=== PATIENT | male | born 1950 | race Caucasian/White ===

== ENCOUNTER 2016-07-02 14:31 | Emergency (ER) | payer MEDICARE ==
[~2016-07-02] VITALS: Ht 175.3 cm; Wt 106.0 kg
[~2016-07-02 14:31] MED LIST: AMLO5TAB96; DIOV320T; HYDR12.56; NAPR500; PROT40TA; SERT100
[2016-07-02 14:35] VITALS: PULSE 93; RESP 17; TEMP 99; O2SAT 92
[2016-07-02] MEDS ORDERED: PROT40TA PO (14:55)
[2016-07-02] MEDS ORDERED: OXYC30TA62 PO (14:55)
[2016-07-02] MEDS ORDERED: AMLO5TAB2 PO (14:55)
[2016-07-02] MEDS ORDERED: OXYC30TA PO (14:55)
[2016-07-02] MEDS ORDERED: SERT-129 PO (14:55)
[2016-07-02] MEDS ORDERED: PANT20TA2 PO (14:55)
[2016-07-02] MEDS ORDERED: DIOV320T3 PO (14:55)
[2016-07-02] MEDS ORDERED: OXYC1CAP PO (14:55)
[2016-07-02] MEDS ORDERED: RESP: ALBUTEROL 2.5 MG/IPRATROPIUM 0.5 MG NEB (SCH) INH ONE (15:00)
[2016-07-02] MEDS ORDERED: SODIUM CHLOR 0.9% 1000 ML INJ 1,000 ML IV ONE (15:00)
[2016-07-02 15:03] VITALS: BP 138/64
--- NOTE | 2016-07-02 15:06 | PD ---
HPI Chief Complaint: Respiratory Symptoms Time Seen by Provider: 14:46 Travel History International Travel<30 days: No Contact w/Intl Traveler<30days: No Traveled to known affect area: No History of Present Illness HPI Patient is a 65-year-old male with history of hypertension, anxiety, GERD who was brought to emergency room by his for evaluation of possible pneumonia. Patient reports that for the past 3 days, he has not been feeling well. Patient reports that he has been feeling tired, reports that he has had a productive cough. Patient reports that he feels uncomfortable all over and reports increased pressures to her sinuses. Patient's reports that last night, patient became short of breath, reports that it appeared that patient was struggling to gasp for air. Reports that they were concerned and brought him to the [facility] today, reports that they were told to go directly to [place] emergency room for evaluation of possible pneumonia and for IV antibiotics and respiratory treatments. Patient denies any sick contacts. Patient reports that he did have the flu vaccine this year. Patient with no recent travels. Patient does endorse that he was a past smoker, reports that he quit in 1997 [facility] Past Medical History Arthritis: Yes (OSTEO) Diminished Hearing: No Hypertension: Yes ?: Not Past Surgical History Abdominal Surgery: Yes (HERNIA 1986,1992) Social History Alcohol Use: No Tobacco Use: No Substance Use: No Allergies-Medications (Allergen,Severity, Reaction): Coded Allergies: Nonsteroidal Anti-Inflammatory Agts (Verified Allergy, Severe, 07/02/16) Augmentin (Verified Allergy, Intermediate, DIARRHEA, 07/02/16) Reported Meds & Prescriptions Reported Meds & Active Scripts Active Medrol Dosepak (Methylprednisolone) 4 Mg Dspk 4 Mg PO DIRECTED Per Pharmacist direction Proair Hfa 8.5 GM Inh (Albuterol Sulfate) 90 Mcg/Act Aer 2 Puff INH Q4-6H PRN 108 mcg/actuation Tramadol (Tramadol HCl) 50 Mg Tab 50 Mg PO Q6H PRN Azithromycin 500 Mg Tab 500 Mg PO DAILY Reported Oxycontin (Oxycodone HCl) 30 Mg Tab 30 Mg PO Q12HR Oxycodone (Oxycodone HCl) 5 Mg Cap 5 Mg PO Q6H PRN Pantoprazole (Pantoprazole Sodium) 20 Mg Tab 20 Mg PO DAILY Sertraline (Sertraline HCl) 100 Mg Tab 100 Mg PO DAILY Diovan Hct (Valsartan-Hydrochlorothiazide) 320-12.5 Mg Tab 1 Tab PO DAILY Protonix (Pantoprazole Sodium) 40 Mg Tab 40 Mg PO DAILY Amlodipine (Amlodipine Besylate) 5 Mg Tab 5 Mg PO DAILY Review of Systems General / Constitutional: Positive: Fever, Chills Eyes: No: Visual changes HENT: No: Headaches Cardiovascular: No: Chest Pain or Discomfort Respiratory: Positive: Cough, Shortness of Breath, Wheezing Gastrointestinal: No: Abdominal Pain Genitourinary: No: Dysuria Musculoskeletal: No: Pain Skin: No Rash Neurologic: No: Weakness Psychiatric: No: Depression Endocrine: No: Polydipsia Hematologic/Lymphatic: No: Easy Bruising Physical Exam Narrative GENERAL: NAD, nontoxic SKIN: Focused skin assessment warm/dry. HEAD: Atraumatic. Normocephalic. EYES: Pupils equal and round. No scleral icterus. No injection or drainage. ENT: No nasal bleeding or discharge. Mucous membranes pink and dry. NECK: Trachea midline. No JVD. CARDIOVASCULAR: Regular rate and rhythm. No murmur appreciated. RESPIRATORY: No accessory muscle use. Clear to auscultation. Breath sounds equal bilaterally. GASTROINTESTINAL: Abdomen soft, non-tender, nondistended. Hepatic and splenic margins not palpable. MUSCULOSKELETAL: No obvious deformities. No clubbing. No cyanosis. No edema. NEUROLOGICAL: Awake and alert. No obvious cranial nerve deficits. Motor grossly within normal limits. Normal speech. PSYCHIATRIC: Appropriate mood and affect; insight and judgment normal. Data Data Last Documented VS Vital Signs Date Time Temp Pulse Resp B/P Pulse Ox O2 Delivery O2 Flow Rate FiO2 07/02/16 15:55 18 95 Room Air 07/02/16 15:03 138/64 07/02/16 14:35 99.0 93 Orders Electrocardiogram (07/02/16 14:54) Complete Blood Count With Diff (07/02/16 14:54) Comprehensive Metabolic Panel (07/02/16 14:54) Influenzae A/B Antigen (07/02/16 14:54) Urinalysis - C+S If Indicated (07/02/16 14:54) Blood Culture (07/02/16 14:54) Chest, Pa & Lat (07/02/16 14:54) Ecg Monitoring (07/02/16 14:54) Iv Access Insert/Monitor (07/02/16 14:54) Oximetry (07/02/16 14:54) Albuterol-Ipratropium Neb (Duoneb Neb) (07/02/16 15:00) Sodium Chlor 0.9% 1000 Ml Inj (Ns 1000 M (07/02/16 15:00) D-Dimer (07/02/16 14:59) Arterial Blood Gas (Abg) (07/02/16 ) Ct Pulmonary Angiogram (07/02/16 15:56) Iohexol 350 Inj (Omnipaque 350 Inj) (07/02/16 16:24) Azithromycin (Zithromax) (07/02/16 16:45) Labs Laboratory Tests Test 07/02/16 07/02/16 07/02/16 15:00 15:30 15:31 White Blood Count 5.9 TH/MM3 Red Blood Count 4.40 MIL/MM3 Hemoglobin 14.3 GM/DL Hematocrit 41.4 % Mean Corpuscular Volume 94.2 FL Mean Corpuscular Hemoglobin 32.5 PG Mean Corpuscular Hemoglobin 34.5 % Concent Red Cell Distribution Width 13.3 % Platelet Count 233 TH/MM3 Mean Platelet Volume 7.3 FL Neutrophils (%) (Auto) 61.0 % Lymphocytes (%) (Auto) 31.3 % Monocytes (%) (Auto) 5.8 % Eosinophils (%) (Auto) 1.2 % Basophils (%) (Auto) 0.7 % Neutrophils # (Auto) 3.7 TH/MM3 Lymphocytes # (Auto) 1.8 TH/MM3 Monocytes # (Auto) 0.3 TH/MM3 Eosinophils # (Auto) 0.1 TH/MM3 Basophils # (Auto) 0.0 TH/MM3 CBC Comment DIFF FINAL Differential Comment D-Dimer Quantitative (PE/DVT) 0.88 MG/L FEU Sodium Level 142 MEQ/L Potassium Level 3.7 MEQ/L Chloride Level 106 MEQ/L Carbon Dioxide Level 27.3 MEQ/L Anion Gap 9 MEQ/L Blood Urea Nitrogen 13 MG/DL Creatinine 1.10 MG/DL Estimat Glomerular Filtration 67 ML/MIN Rate Random Glucose 104 MG/DL Calcium Level 8.5 MG/DL Total Bilirubin 0.3 MG/DL Aspartate Amino Transf 23 U/L (AST/SGOT) Alanine Aminotransferase 26 U/L (ALT/SGPT) Alkaline Phosphatase 100 U/L Total Protein 7.1 GM/DL Albumin 3.8 GM/DL Urine Collection Type CLEAN CATCH Urine Color YELLOW Urine Turbidity CLEAR Urine pH 6.0 Urine Specific [place] 1.020 Urine Protein NEG mg/dL Urine Glucose (UA) NEG mg/dL Urine Ketones NEG mg/dL Urine Occult Blood NEG Urine Nitrite NEG Urine Bilirubin NEG Urine Leukocyte Esterase NEG Urine RBC 0-3 /hpf Microscopic Urinalysis Comment CULT NOT INDICATED Blood Gas Puncture Site LT BRACHIAL Blood Gas Patient Temperature 98.6 Blood Gas HCO3 26 mmol/L Blood Gas Base Excess 1.6 mmol/L Blood Gas Oxygen Saturation 92 % Arterial Blood pH 7.40 Arterial Blood Partial 43 mmHG Pressure CO2 Arterial Blood Partial 78 mmHG Pressure O2 Arterial Blood Oxygen Content 18.1 Vol % Arterial Blood 1.9 % Carboxyhemoglobin Arterial Blood Methemoglobin 1.2 % Blood Gas Hemoglobin 14.0 G/DL Oxygen Delivery Device NONE Blood Gas Inspired Oxygen 21 % MDM Medical Decision Making Medical Screen Exam Complete: Yes Emergency Medical Condition: Yes Interpretation(s) EKG at 1458: NSR at 80bpm, qt/qtc: 372/407, no acute st or t wave changes, non acute ekg Vital Signs Date Time Temp Pulse Resp B/P Pulse Ox O2 Delivery O2 Flow Rate FiO2 07/02/16 14:35 99.0 93 17 92 Differential Diagnosis Pneumonia, influenza, viral infection, PE, pneumothorax Narrative Course Patient is a 65-year-old male who presents to emergency room for evaluation of possible pneumonia. Patient reports that he has been feeling sick for the past 3 days with increased cough, congestion, fevers and chills. Patient was seen at [facility] urgent care today, was transferred to the emergency room for evaluation of suspected left-sided pneumonia, dehydration. Patient did not receive x-ray of the chest, lab work or antibiotics while at the urgent care center. Patient here for full workup. Patient hypoxic with a pulse ox of 92% on room air. ABG as well as neb treatment ordered. Patient was placed on a surveillance monitor as well as continuous pulse oximeter.. EKG ordered. Labs including blood cultures Of the chest ordered to evaluate for possible signs of infection. Plan to give IVF and monitor patient Laboratory Tests Test 07/02/16 07/02/16 07/02/16 15:00 15:30 15:31 White Blood Count 5.9 TH/MM3 (4.0-11.0) Red Blood Count 4.40 MIL/MM3 (4.50-5.90) Hemoglobin 14.3 GM/DL (13.0-17.0) Hematocrit 41.4 % (39.0-51.0) Mean Corpuscular Volume 94.2 FL (80.0-100.0) Mean Corpuscular Hemoglobin 32.5 PG (27.0-34.0) Mean Corpuscular Hemoglobin 34.5 % Concent (32.0-36.0) Red Cell Distribution Width 13.3 % (11.6-17.2) Platelet Count 233 TH/MM3 (150-450) Mean Platelet Volume 7.3 FL (7.0-11.0) Neutrophils (%) (Auto) 61.0 % (16.0-70.0) Lymphocytes (%) (Auto) 31.3 % (9.0-44.0) Monocytes (%) (Auto) 5.8 % (0.0-8.0) Eosinophils (%) (Auto) 1.2 % (0.0-4.0) Basophils (%) (Auto) 0.7 % (0.0-2.0) Neutrophils # (Auto) 3.7 TH/MM3 (1.8-7.7) Lymphocytes # (Auto) 1.8 TH/MM3 (1.0-4.8) Monocytes # (Auto) 0.3 TH/MM3 (0-0.9) Eosinophils # (Auto) 0.1 TH/MM3 (0-0.4) Basophils # (Auto) 0.0 TH/MM3 (0-0.2) CBC Comment DIFF FINAL Differential Comment D-Dimer Quantitative (PE/DVT) 0.88 MG/L FEU (0.00-0.50) Sodium Level 142 MEQ/L (136-145) Potassium Level 3.7 MEQ/L (3.5-5.1) Chloride Level 106 MEQ/L (98-107) Carbon Dioxide Level 27.3 MEQ/L (21.0-32.0) Anion Gap 9 MEQ/L (5-15) Blood Urea Nitrogen 13 MG/DL (7-18) Creatinine 1.10 MG/DL (0.60-1.30) Estimat Glomerular Filtration 67 ML/MIN (>89) Rate Random Glucose 104 MG/DL (74-106) Calcium Level 8.5 MG/DL (8.5-10.1) Total Bilirubin 0.3 MG/DL (0.2-1.0) Aspartate Amino Transf 23 U/L (15-37) (AST/SGOT) Alanine Aminotransferase 26 U/L (12-78) (ALT/SGPT) Alkaline Phosphatase 100 U/L (45-117) Total Protein 7.1 GM/DL (6.4-8.2) Albumin 3.8 GM/DL (3.4-5.0) Urine Collection Type CLEAN CATCH Urine Color YELLOW (YELLW/STRAW) Urine Turbidity CLEAR (CLEAR) Urine pH 6.0 (5.0-8.5) Urine Specific [place] 1.020 (1.002-1.035) Urine Protein NEG mg/dL (NEG-TRACE) Urine Glucose (UA) NEG mg/dL (NEG) Urine Ketones NEG mg/dL (NEG) Urine Occult Blood NEG (NEG) Urine Nitrite NEG (NEG) Urine Bilirubin NEG (NEG) Urine Leukocyte Esterase NEG (NEG) Urine RBC 0-3 /hpf (0-3) Microscopic Urinalysis Comment CULT NOT INDICATED Blood Gas Puncture Site LT BRACHIAL Blood Gas Patient Temperature 98.6 Blood Gas HCO3 26 mmol/L (22-26) Blood Gas Base Excess 1.6 mmol/L (-2-2) Blood Gas Oxygen Saturation 92 % (90-100) Arterial Blood pH 7.40 (7.380-7.420) Arterial Blood Partial 43 mmHG (38-42) Pressure CO2 Arterial Blood Partial 78 mmHG Pressure O2 (61-120) Arterial Blood Oxygen Content 18.1 Vol % (12.0-20.0) Arterial Blood 1.9 % (0-4) Carboxyhemoglobin Arterial Blood Methemoglobin 1.2 % (0-2) Blood Gas Hemoglobin 14.0 G/DL (12.0-16.0) Oxygen Delivery Device NONE Blood Gas Inspired Oxygen 21 % Microbiology Date/Time Procedure Status Source Growth 07/02/16 15:00 Aerobic Blood Culture Received Blood Peripheral Pending 07/02/16 15:00 Anaerobic Blood Culture Received Blood Peripheral Pending 07/02/16 15:00 Influenza Types A,B Antigen (KAE) - Final Complete Nasal Washing NEGATIVE FOR FLU A AND B ANTIGEN.... 07/02/16 15:13 Aerobic Blood Culture Received Blood Peripheral Pending 07/02/16 15:13 Anaerobic Blood Culture Received Blood Peripheral Pending Last Impressions Chest X-Ray 07/02/164 Signed Impressions: Service Date/Time: Saturday, July 02, 2016 15:11 - CONCLUSION: The lungs are clear. Douglas Beatty MD Patient with positive d-dimer, pts pulse ox 92% on room air - CTA ordered Reviewed labs and studies with patient in detail, patient is agreeable to further testing. Last Impressions Chest X-Ray 07/02/161453 Signed Impressions: Service Date/Time: Saturday, July 02, 2016 15:11 - CONCLUSION: The lungs are clear. Douglas Beatty MD Microbiology Date/Time Procedure Status Source Growth 07/02/16 15:00 Aerobic Blood Culture Received Blood Peripheral Pending 07/02/16 15:00 Anaerobic Blood Culture Received Blood Peripheral Pending 07/02/16 15:00 Influenza Types A,B Antigen (KAE) - Final Complete Nasal Washing NEGATIVE FOR FLU A AND B ANTIGEN.... 07/02/16 15:13 Aerobic Blood Culture Received Blood Peripheral Pending 07/02/16 15:13 Anaerobic Blood Culture Received Blood Peripheral Pending CT of the chest shows no pulmonary embolism or pneumonia. All labs and all studies reviewed in detail, patient with benign exam. Patient most likely with acute bronchitis. Patient will follow-up with primary care doctor and will return to emergency room as needed. Patient requesting tramadol for his chronic pain, reports that he wishes to be taken off of Percocet and request a script for tramadol for his chronic pain "all over my body." Patient will follow-up with his primary care doctor Monday for further script as he understands that the ER cannot manage his chronic pain Diagnosis Primary Impression: Bronchitis Additional Impression: Chronic pain Qualified Code: G89.4 - Chronic pain syndrome Patient Instructions: General Instructions Additional Instructions: Please follow-up with your primary care doctor in 2-3 days Return to emergency room if symptoms progress or worsen Please return to emergency room as needed Take all medications as prescribed Please follow up with all cultures from today Med/Other Pt SpecificInfo: Prescription(s) given Scripts Methylprednisolone Dosepak (Medrol Dosepak)4 Mg Dspk4 Mg PO DIRECTED #1 DSPK Ref 0 Per Pharmacist direction Prov:Viola Heller DO 07/02/16 Albuterol 8.5 GM Inh (Proair Hfa 8.5 GM Inh)90 Mcg/Act Aer2 Puff INH Q4-6H PRN ( SHORTNESS OF BREATH) #1 INHALER Ref 0 108 mcg/actuation Prov:Viola Heller DO 07/02/16 Tramadol 50 Mg Tab50 Mg PO Q6H PRN (PAIN) #20 TAB Ref 0 Prov:Viola Heller DO 07/02/16 Azithromycin 500 Mg [id number] Mg PO DAILY #5 TAB Ref 0 Prov:Viola Heller DO 07/02/16 Disposition: 01 DISCHARGE HOME Condition: Stable Viola Heller DO Jul 02, 2016 15:06
[2016-07-02 15:08] LABS: AUTOMATED NEUTROPHIL # 3.7 TH/MM3 (1.8-7.7); BASOPHIL % 0.7 % (0.0-2.0); EOSINOPHIL # 0.1 TH/MM3 (0-0.4); EOSINOPHIL % 1.2 % (0.0-4.0); HEMATOCRIT 41.4 % (39.0-51.0); HEMO FLAGS DIFF FINAL; LYMPH % 31.3 % (9.0-44.0); LYMPHOCYTE # 1.8 TH/MM3 (1.0-4.8); MEAN CELL VOLUME 94.2 FL (80.0-100.0); MEAN CORPUSCULAR HEMOGLOBIN 32.5 PG (27.0-34.0); MEAN CORPUSCULAR HGB CONC 34.5 % (32.0-36.0); MONO % 5.8 % (0.0-8.0); PLATELET COUNT 233 TH/MM3 (150-450); RED CELL DISTRIBUTION WIDTH 13.3 % (11.6-17.2); WHITE BLOOD COUNT 5.9 TH/MM3 (4.0-11.0)
[2016-07-02 15:17] LABS: CHLORIDE 106 MEQ/L (98-107); POTASSIUM 3.7 MEQ/L (3.5-5.1); SODIUM (NA) 142 MEQ/L (136-145)
[2016-07-02 15:21] LABS: ANION GAP 9 MEQ/L (5-15); BICARBONATE 27.3 MEQ/L (21.0-32.0); BLOOD UREA NITROGEN 13 MG/DL (7-18)
[2016-07-02 15:23] LABS: ALT (GPT) 26 U/L (12-78)
[2016-07-02 15:24] LABS: AST (GOT) 23 U/L (15-37); GLOMERULAR FILTRATION RATE 67 ML/MIN (>89)
[2016-07-02 15:25] LABS: TOTAL BILIRUBIN ADULT 0.3 MG/DL (0.2-1.0)
[2016-07-02 15:26] LABS: ALKALINE PHOSPHATASE 100 U/L (45-117)
[2016-07-02 15:39] LABS: BLOOD GAS BASE EXCESS 1.6 mmol/L (-2-2); BLOOD GAS CARBOXYHEMOGLOBIN 1.9 % (0-4); BLOOD GAS HCO3 26 mmol/L (22-26); BLOOD GAS METHEMOGLOBIN 1.2 % (0-2); BLOOD GAS O2 HGB SATURATION 92 % (90-100); BLOOD GAS OXYGEN CONTENT 18.1 Vol % (12.0-20.0); BLOOD GAS PCO2 43 mmHG (38-42); BLOOD GAS PO2 78 mmHG (61-120); CRITICAL VALUE NO; DRAW SITE LT BRACHIAL; FIO2 21 %; NUMBER OF ARTERIAL PUNCTURES 1; STAT YES; TEMP CORR TO 98.6; ULNAR PULSE PRESENT
[2016-07-02 15:43] LABS: BLOOD, URINE NEG (NEG); GLUCOSE,URINE NEG (NEG); KETONE, URINE NEG (NEG); NITRITE,URINE NEG (NEG)
[2016-07-02 15:45] LABS: METHOD OF COLLECTION CLEAN CATCH; URINE COLOR YELLOW (YELLW/STRAW)
--- NOTE | 2016-07-02 15:45 | RADHPO ---
EXAM DATE/TIME: 07/02/2016 15:11 [facility] COMPARISON: No previous studies available for comparison. INDICATIONS : Cough and congestion for over one week. MEDICAL HISTORY : None. SURGICAL HISTORY : None. ENCOUNTER: Initial ACUITY: 1 week PAIN SCORE: 3/10 LOCATION: Bilateral lower chest FINDINGS: PA and lateral views of the chest demonstrate the lungs to be symmetrically aerated without evidence of mass, infiltrate or effusion. The cardiomediastinal contours are unremarkable. Osseous structure s are intact. CONCLUSION: The lungs are clear. Douglas Beatty MD on July 02, 2016 at 15:43 Board Certified Radiologist. This report was verified electronically.
[2016-07-02 15:48] LABS: COMMENT (UR) CULT NOT INDICATED; CULTURE IF INDICATED CULT NOT INDICATED; RBC, URINE 0-3 /hpf (0-3)
[2016-07-02 15:55] VITALS: RESP 18; O2SAT 95
[2016-07-02] MEDS ORDERED: IOHEXOL 350 MG/ML 10 ML VIAL (for RAD DIAG) IV ONE (16:24)
--- NOTE | 2016-07-02 16:32 | RADHPO ---
EXAM DATE/TIME: 07/02/2016 16:06 [facility] COMPARISON: No previous studies available for comparison. INDICATIONS : Cough, congestion, fever for 4 days. Elevated D-Dimer. IV CONTRAST: 80 cc Omnipaque 350 (iohexol) IV RADIATION DOSE: 20.75 CTDIvol (mGy) MEDICAL HISTORY : Hypertension. SURGICAL HISTORY : None. ENCOUNTER: Initial ACUITY: 4 - 6 days PAIN SCALE: 0/10 LOCATION: Bilateral chest TECHNIQUE: Volumetric scanning of the chest was performed using a pulmonary embolism protocol MIP images were re constructed. Using automated exposure control and adjustment of the mA and/or kV according to patien t size, radiation dose was kept as low as reasonably achievable to obtain optimal diagnostic quality images. FINDINGS: PULMONARY ARTERIES: No filling defects are seen in the pulmonary arteries through the segmental level. LUNGS: There is no consolidation or pneumothorax . No concerning pulmonary nodule is visualized. PLEURAE: There is no pleural thickening or pleural effusion. MEDIASTINUM: There is good visualization of the great vessels of the middle mediastinum. No evidence of mediastin al or hilar adenopathy/mass. CONCLUSION: The study is negative for pulmonary embolism. Douglas Beatty MD on July 02, 2016 at 16:29 Board Certified Radiologist. This report was verified electronically.
[2016-07-02] MEDS ORDERED: AZIT500T2 PO ×2 (16:38→17:33)
[2016-07-02] MEDS ORDERED: TRAM50TA PO ×2 (16:38→17:33)
[2016-07-02] MEDS ORDERED: MEDR4PAK PO ×2 (16:38→17:33)
[2016-07-02] MEDS ORDERED: ALBUAER3 INH ×2 (16:38→17:33)
[2016-07-02] MEDS ORDERED: AZITHROMYCIN 250 MG TAB PO ONE (16:45)
--- NOTE | 2016-07-03 13:38 | EKG ---
Date Performed: 07/02/2016 Time Performed: 14:58:50 PTAGE: 65 years EKG: Sinus rhythm Normal ECG NO PREVIOUS TRACING DOCTOR: Andi Reeves Interpretating Date/Time 07/03/2016 13:33:32
== END 2016-07-02 16:55 | disposition home or self-care (01) ==
LOC: PHED 14:31
DX: Z87.891 Personal history of nicotine dependence (principal); J40 Bronchitis, not specified as acute or chronic; G89.4 Chronic pain syndrome
CPT/HCPCS: 36600; 71020; 71275; 80053; 81001; 82805; 85025; 85379; 87040; 87804; 93005; 94664; 99284; J7030; Q9967

== ENCOUNTER 2016-07-26 13:43 | Emergency (ER) | payer MEDICARE ==
[~2016-07-26] VITALS: Ht 177.8 cm; Wt 100.0 kg
[~2016-07-26 13:43] MED LIST changes: +ALBUAER3 INH; +AMLO5TAB2 PO; -AMLO5TAB96; +AZIT500T2 PO; -DIOV320T; +DIOV320T3 PO; -HYDR12.56; +MEDR4PAK PO; -NAPR500; +OXYC1CAP PO; +OXYC30TA62 PO; +PANT20TA2 PO; -PROT40TA; +PROT40TA PO; +SERT-129 PO; -SERT100; +TRAM50TA PO
[2016-07-26 13:52] VITALS: BP 136/70; PULSE 99; RESP 21; TEMP 99.1; O2SAT 92
[2016-07-26 14:03] VITALS: O2SAT 96
--- NOTE | 2016-07-26 14:13 | PD ---
HPI Chief Complaint: Alcohol/Drug Intoxication Time Seen by Provider: 13:52 Travel History International Travel<30 days: No Contact w/Intl Traveler<30days: No Traveled to known affect area: No History of Present Illness HPI 65-year-old male complains of low back pain. Patient was found intoxicated in the parking lot in front of oncology building this afternoon. Patient responded to sternal rub by EMS. Patient was brought to the ED for evaluation. Patient states that he drank wine this morning. Patient denies any headache. Patient denies any chest pain or shortness of breath. Patient denies abdominal pain. Patient denies any nausea vomiting diarrhea. Patient has history chronic back pain. Patient denies any new injury. Patient denies any focal weakness or numbness of the extremity. Patient has history of prostate cancer and has been seen by urologist and radiation oncologist. 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 Recently he has elevated PSA level. Patient is scheduled for radiotherapy adjuvant hormonal therapy. PFSH Past Medical History Arthritis: Yes (OSTEO) Diminished Hearing: No Hypertension: Yes Past Surgical History Abdominal Surgery: Yes (HERNIA 1986,1992) Social History Alcohol Use: No Tobacco Use: No Substance Use: No Allergies-Medications (Allergen,Severity, Reaction): Coded Allergies: Nonsteroidal Anti-Inflammatory Agts (Verified Allergy, Severe, 07/26/16) Augmentin (Verified Allergy, Intermediate, DIARRHEA, 07/26/16) Reported Meds & Prescriptions Reported Meds & Active Scripts Active Medrol Dosepak (Methylprednisolone) 4 Mg Dspk 4 Mg PO DIRECTED Per Pharmacist direction Proair Hfa 8.5 GM Inh (Albuterol Sulfate) 90 Mcg/Act Aer 2 Puff INH Q4-6H PRN 108 mcg/actuation Tramadol (Tramadol HCl) 50 Mg Tab 50 Mg PO Q6H PRN Azithromycin 500 Mg Tab 500 Mg PO DAILY Reported Oxycontin (Oxycodone HCl) 30 Mg Tab 30 Mg PO Q12HR Oxycodone (Oxycodone HCl) 5 Mg Cap 5 Mg PO Q6H PRN Pantoprazole (Pantoprazole Sodium) 20 Mg Tab 20 Mg PO DAILY Sertraline (Sertraline HCl) 100 Mg Tab 100 Mg PO DAILY Diovan Hct (Valsartan-Hydrochlorothiazide) 320-12.5 Mg Tab 1 Tab PO DAILY Protonix (Pantoprazole Sodium) 40 Mg Tab 40 Mg PO DAILY Amlodipine (Amlodipine Besylate) 5 Mg Tab 5 Mg PO DAILY Review of Systems General / Constitutional: No: Fever Eyes: No: Visual changes HENT: No: Headaches Cardiovascular: No: Chest Pain or Discomfort Respiratory: No: Shortness of Breath Gastrointestinal: No: Abdominal Pain Genitourinary: No: Dysuria Musculoskeletal: No: Pain Skin: No Rash Neurologic: No: Weakness Psychiatric: No: Depression Endocrine: No: Polydipsia Hematologic/Lymphatic: No: Easy Bruising Physical Exam Narrative GENERAL: Well-nourished, well-developed patient. SKIN: Focused skin assessment warm/dry. HEAD: Normocephalic. EYES: No scleral icterus. No injection or drainage. NECK: Supple, trachea midline. No JVD or lymphadenopathy. CARDIOVASCULAR: Regular rate and rhythm without murmurs, gallops, or rubs. RESPIRATORY: Breath sounds equal bilaterally. No accessory muscle use. GASTROINTESTINAL: Abdomen soft, non-tender, nondistended. MUSCULOSKELETAL: No cyanosis, or edema. BACK: Moderate tenderness on palpation lumbar area, without obvious deformity. No CVA tenderness. Neurologic exam normal. Data Data Last Documented VS Vital Signs Date Time Temp Pulse Resp B/P Pulse Ox O2 Delivery O2 Flow Rate FiO2 07/26/16 14:03 96 Nasal Cannula 2 07/26/16 13:52 99.1 99 21 136/70 Orders Complete Blood Count With Diff (07/26/16 13:58) Comprehensive Metabolic Panel (07/26/16 13:58) Lipase (07/26/16 13:58) Urinalysis - C+S If Indicated (07/26/16 13:58) Iv Access Insert/Monitor (07/26/16 13:58) Ecg Monitoring (07/26/16 13:58) Oximetry (07/26/16 13:58) Alcohol (Ethanol) (07/26/16 13:58) Ct Lumb Spine W/O Contrast (07/26/16 14:05) Sodium Chlor 0.9% 1000 Ml Inj (Ns 1000 M (07/26/16 14:15) Labs Laboratory Tests Test 07/26/16 07/26/16 14:00 15:30 White Blood Count 8.5 TH/MM3 Red Blood Count 4.47 MIL/MM3 Hemoglobin 14.7 GM/DL Hematocrit 42.0 % Mean Corpuscular Volume 94.1 FL Mean Corpuscular Hemoglobin 32.9 PG Mean Corpuscular Hemoglobin 35.0 % Concent Red Cell Distribution Width 13.5 % Platelet Count 236 TH/MM3 Mean Platelet Volume 7.5 FL Neutrophils (%) (Auto) 52.4 % Lymphocytes (%) (Auto) 36.6 % Monocytes (%) (Auto) 8.0 % Eosinophils (%) (Auto) 1.7 % Basophils (%) (Auto) 1.3 % Neutrophils # (Auto) 4.5 TH/MM3 Lymphocytes # (Auto) 3.1 TH/MM3 Monocytes # (Auto) 0.7 TH/MM3 Eosinophils # (Auto) 0.1 TH/MM3 Basophils # (Auto) 0.1 TH/MM3 CBC Comment DIFF FINAL Differential Comment Sodium Level 141 MEQ/L Potassium Level 3.8 MEQ/L Chloride Level 105 MEQ/L Carbon Dioxide Level 25.1 MEQ/L Anion Gap 11 MEQ/L Blood Urea Nitrogen 18 MG/DL Creatinine 1.15 MG/DL Estimat Glomerular Filtration 64 ML/MIN Rate Random Glucose 88 MG/DL Calcium Level 8.9 MG/DL Total Bilirubin 0.4 MG/DL Aspartate Amino Transf 25 U/L (AST/SGOT) Alanine Aminotransferase 28 U/L (ALT/SGPT) Alkaline Phosphatase 85 U/L Total Protein 7.2 GM/DL Albumin 3.8 GM/DL Lipase 184 U/L Ethyl Alcohol Level 295 MG/DL Urine Color LIGHT-YELLOW Urine Turbidity CLEAR Urine pH 6.0 Urine Specific [place] 1.003 Urine Protein NEG mg/dL Urine Glucose (UA) NEG mg/dL Urine Ketones NEG mg/dL Urine Occult Blood NEG Urine Nitrite NEG Urine Bilirubin NEG Urine Urobilinogen LESS THAN 2.0 MG/DL Urine Leukocyte Esterase NEG Microscopic Urinalysis Comment CULT NOT INDICATED MDM Medical Decision Making Medical Screen Exam Complete: Yes Emergency Medical Condition: Yes Medical Record Reviewed: Yes Interpretation(s) Last Impressions Lumbar Spine CT 07/26/16 [id number] Signed Impressions: Service Date/Time: Tuesday, July 26, 2016 15:10 - CONCLUSION: 1. Mild broad-based posterior disc osteophyte complexes at L3-4, L4-5 and L5-S1 levels. No canal stenosis. 2. Laminectomies L3-4 and L4-5 levels. 3. Advanced multilevel degenerative changes. Umer Cruz MD 1600 p.m. CBC within normal limit. CMP within normal limit. Alcohol 295. UA is negative. Differential Diagnosis Differential diagnosis including alcohol intoxication, dehydration, electrolyte imbalance, drug induced mood disorder. Narrative Course 65-year-old male was found intoxicated in a parking lot. History of prostate cancer. Normal saline solution 1 25 cc an hour. Diagnosis Primary Impression: Alcohol intoxication Qualified Code: F10.920 - Alcohol intoxication, uncomplicated Additional Impression: Acute exacerbation of chronic low back pain Patient Instructions: General Instructions Additional Instructions: Advised [facility]. Follow-up with personal physician. Return as needed. Med/Other Pt SpecificInfo: No Change to Meds Disposition: 01 DISCHARGE HOME Condition: Stable Nabor Pulliam MD July 26, 2016 14:13
[2016-07-26] MEDS ORDERED: SODIUM CHLOR 0.9% 1000 ML INJ 1,000 ML IV SCH (14:15)
[2016-07-26 14:18] LABS: AUTOMATED NEUTROPHIL # 4.5 TH/MM3 (1.8-7.7); BASOPHIL # 0.1 TH/MM3 (0-0.2); BASOPHIL % 1.3 % (0.0-2.0); EOSINOPHIL # 0.1 TH/MM3 (0-0.4); EOSINOPHIL % 1.7 % (0.0-4.0); HEMO FLAGS DIFF FINAL; LYMPH % 36.6 % (9.0-44.0); LYMPHOCYTE # 3.1 TH/MM3 (1.0-4.8); MEAN CELL VOLUME 94.1 FL (80.0-100.0); MEAN CORPUSCULAR HEMOGLOBIN 32.9 PG (27.0-34.0); NEUT % 52.4 % (16.0-70.0); PLATELET COUNT 236 TH/MM3 (150-450); RED BLOOD COUNT 4.47 MIL/MM3 (4.50-5.90); RED CELL DISTRIBUTION WIDTH 13.5 % (11.6-17.2); WHITE BLOOD COUNT 8.5 TH/MM3 (4.0-11.0)
[2016-07-26 14:44] LABS: ALKALINE PHOSPHATASE 85 U/L (45-117); TOTAL BILIRUBIN ADULT 0.4 MG/DL (0.2-1.0)
[2016-07-26 15:02] LABS: ALT (GPT) 28 U/L (12-78); ANION GAP 11 MEQ/L (5-15); AST (GOT) 25 U/L (15-37); BICARBONATE 25.1 MEQ/L (21.0-32.0); BLOOD UREA NITROGEN 18 MG/DL (7-18); CHLORIDE 105 MEQ/L (98-107); GLOMERULAR FILTRATION RATE 64 ML/MIN (>89); POTASSIUM 3.8 MEQ/L (3.5-5.1); SODIUM (NA) 141 MEQ/L (136-145)
--- NOTE | 2016-07-26 15:38 | RADRPT ---
EXAM DATE/TIME: 07/26/2016 15:10 [place] COMPARISON: No previous studies available for comparison. INDICATIONS : Low back pain. RADIATION DOSE: 48.56 CTDIvol (mGy) MEDICAL HISTORY : Hypertension. Hernia. Carcinoma, prostate. SURGICAL HISTORY : Lamenectomy. ENCOUNTER: Initial ACUITY: 1 day PAIN SCALE: 8/10 LOCATION: Bilateral lower back TECHNIQUE: Volumetric scanning of the lumbar spine was performed. Multiplanar reconstructions in the sagittal, coronal and oblique axial planes were performed. Using automated exposure control and adjustment of the mA and/or kV according to patient size, radiation dose was kept as low as reasonably achievable t o obtain optimal diagnostic quality images. FINDINGS: VERTEBRAE: Normal vertebral body height. No fracture seen. Advanced multilevel degenerative changes greatest at L3-4, L4-5 and L5-S1 levels. ALIGNMENT: No evidence of subluxation. There is levocurvature. T12-L1: The thecal sac has a normal diameter. No evidence of disc bulge or protrusion. The neural foramina are patent bilaterally. L1-L2: The thecal sac has a normal diameter. No evidence of disc bulge or protrusion. The neural foramina are patent bilaterally. L2-L3: The thecal sac has a normal diameter. No evidence of disc bulge or protrusion. The neural foramina are patent bilaterally. L3-L4: Mild broad-based posterior disc osteophyte complex abuts the ventral thecal sac without canal stenosi s. Bilateral laminectomies. Mild facet arthropathy. Mild neural foraminal narrowing bilaterally. L4-L5: Mild broad-based posterior disc osteophyte complex abuts the ventral thecal sac without canal stenosi s. Bilateral laminectomies. Mild facet arthropathy. Mild neural foraminal narrowing bilaterally. L5-S1: Mild broad-based posterior disc osteophyte complex abuts the ventral thecal sac without canal stenosi s. Mild facet arthropathy. The neural foramina are patent bilaterally. CONCLUSION: 1. Mild broad-based posterior disc osteophyte complexes at L3-4, L4-5 and L5-S1 levels. No canal sten osis. 2. Laminectomies L3-4 and L4-5 levels. 3. Advanced multilevel degenerative changes. Umer Cruz MD on July 26, 2016 at 15:28 Board Certified Radiologist. This report was verified electronically.
[2016-07-26 15:55] LABS: BLOOD, URINE NEG (NEG); GLUCOSE,URINE NEG (NEG); KETONE, URINE NEG (NEG); NITRITE,URINE NEG (NEG); URINE COLOR LIGHT-YELLOW (YELLW/STRAW)
[2016-07-26 15:59] LABS: COMMENT (UR) CULT NOT INDICATED; CULTURE IF INDICATED CULT NOT INDICATED
[2016-07-26 18:00] VITALS: BP 104/62; PULSE 70; RESP 16; O2SAT 97
[2016-07-26 19:21] VITALS: BP 117/64; PULSE 98; RESP 18; O2SAT 100
== END 2016-07-26 19:22 | disposition home or self-care (01) ==
LOC: NEPC 13:43
DX: F10.920 Alcohol use, unspecified with intoxication, uncomplicated (principal); M54.5 Low back pain; G89.29 Other chronic pain; I10 Essential (primary) hypertension
CPT/HCPCS: 72131; 80053; 80307; 81001; 83690; 85025; 99284; J7030

== ENCOUNTER 2017-06-04 15:05 | Emergency (ER) | payer MEDICARE ==
[2017-06-04 15:09] VITALS: BP 100/54; PULSE 98; RESP 20; TEMP 98.2; O2SAT 96
--- NOTE | 2017-06-04 15:34 | PD ---
HPI Chief Complaint: Alcohol/Drug Intoxication Time Seen by Provider: 15:07 Travel History International Travel<30 days: No Contact w/Intl Traveler<30days: No Traveled to known affect area: No History of Present Illness HPI 66-year-old male arrives by EMS after he fell while attempting to get into his car today. He drank alcohol today. He has chronic back pain reports and not taking his oxycodone today. His complaints include request for opioids and ride home. RN conversation with patient's significant for positive opioid ingestion today. Pt reports drinking about 1 pint of liquor today. PFSH Past Medical History Arthritis: Yes (OSTEO) Diminished Hearing: No Hypertension: Yes ?: Not Past Surgical History Abdominal Surgery: Yes (HERNIA 1986,1992) Social History Alcohol Use: Yes Tobacco Use: No Substance Use: No Allergies-Medications (Allergen,Severity, Reaction): Coded Allergies: diclofenac (Unverified Allergy, Severe, 06/04/17) etodolac (Unverified Allergy, Severe, 06/04/17) flurbiprofen (Unverified Allergy, Severe, 06/04/17) ibuprofen (Unverified Allergy, Severe, 06/04/17) indomethacin (Unverified Allergy, Severe, 06/04/17) ketoprofen (Unverified Allergy, Severe, 06/04/17) ketorolac (Unverified Allergy, Severe, 06/04/17) naproxen (Unverified Allergy, Severe, 06/04/17) oxaprozin (Unverified Allergy, Severe, 06/04/17) amoxicillin (Unverified Allergy, Intermediate, DIARRHEA, 06/04/17) clavulanic acid (Unverified Allergy, Intermediate, DIARRHEA, 06/04/17) Reported Meds & Prescriptions Reported Meds & Active Scripts Active Active Prescriptions or Reported Medications Unobtainable Review of Systems Except as stated in HPI: all other systems reviewed are Neg General / Constitutional: No: Fever Cardiovascular: No: Chest Pain or Discomfort, Palpitations Respiratory: No: Cough, Shortness of Breath Gastrointestinal: No: Nausea, Vomiting, Abdominal Pain Physical Exam Narrative GENERAL: 66-year-old male, etoh on breath, somewhat uncooperative Vital Signs Date Time Temp Pulse Resp B/P (MAP) Pulse Ox O2 Delivery O2 Flow Rate FiO2 06/04/17 15:09 98.2 98 20 100/54 (69) 96 SKIN: Warm and dry. HEAD: Atraumatic. Normocephalic. EYES: Pupils equal and round. No scleral icterus. No injection or drainage. ENT: No nasal bleeding or discharge. Mucous membranes pink and moist. NECK: Trachea midline. No JVD. CARDIOVASCULAR: Tachycardia to about 90s. Regular rhythm. RESPIRATORY: No accessory muscle use. Clear to auscultation. Breath sounds equal bilaterally. GASTROINTESTINAL: Abdomen soft, non-tender, nondistended. Hepatic and splenic margins not palpable. MUSCULOSKELETAL: Extremities without clubbing, cyanosis, or edema. No obvious deformities. NEUROLOGICAL: EtOH intoxication. Uncooperative. Moving all extremities normally. Answers questions at times. PSYCHIATRIC: EtOH intoxication. No sign hallucinations. Normal attire. Data Data Last Documented VS Vital Signs Date Time Temp Pulse Resp B/P (MAP) Pulse Ox O2 Delivery O2 Flow Rate FiO2 06/04/17 15:09 98.2 98 20 100/54 (69) 96 Orders Orders Promethazine Inj (Phenergan Inj) (06/04/17 16:00) Ed Discharge Order (06/04/17 17:58) MDM Medical Decision Making Medical Screen Exam Complete: Yes Emergency Medical Condition: Yes Medical Record Reviewed: Yes Differential Diagnosis Alcohol intoxication, acute on chronic pain, chronic pain, malingering Narrative Course Pt arrives intoxicated with alcohol. His agreed to pick him up and take him home. Pt remained sitting upright on the stretcher with legs on the floor for most of his stay. Pt is sufficiently clinically sober for discharge with adult gut cleaner. Diagnosis Primary Impression: Chronic pain Qualified Codes: G89.29 - Other chronic pain Additional Impression: Alcohol intoxication Qualified Codes: F10.929 - Alcohol use, unspecified with intoxication, unspecified Scripts Unable to Obtain Active Prescriptions or Reported Meds Disposition: 01 DISCHARGE HOME Condition: Stable Jase Barry MD Jun 04, 2017 15:34
[2017-06-04] MEDS ORDERED: PROMETHAZINE INJ 25 MG/ML VIAL IM ONE (16:00)
== END 2017-06-04 18:33 | disposition home or self-care (01) ==
LOC: PHED 15:05
DX: G89.29 Other chronic pain (principal); F10.129 Alcohol abuse with intoxication, unspecified; R00.0 Tachycardia, unspecified; M19.90 Unspecified osteoarthritis, unspecified site; I10 Essential (primary) hypertension; Z88.0 Allergy status to penicillin; Z88.8 Allergy status to other drugs, medicaments and biological substances
CPT/HCPCS: 96372